=== PATIENT | female | born 1930 | race Caucasian/White ===

== ENCOUNTER 2019-05-06 22:01 | Emergency (ER) | payer OTHER ==
--- NOTE | 2019-05-06 23:59 | ER ---
Nurse's Notes [facility] Name: Tatiana Mccoy Age: 89 yrs Sex: Female : 1930 Arrival Date: 05/06/2019 Time: 22:06 Bed 20 Private MD: Diagnosis: Contusion of other part of head Presentation: 05/06 22:18 Presenting complaint: Patient states: "I was playing [employer] and when I went to 1 get up out of chair, I fell backwards and hit my head on double glass panel; pain to right side of head; denies any pain, N/V. Care prior to arrival: None. Mechanism of Injury: Fall from standing position. Trauma event details: Injury occurred in the [facility], Injury occurred: at home. Injury occurred: May 06, 2019 Injury occurred at: 21:00. 22:18 Acuity: SHELLY 3 lp1 22:18 Method Of Arrival: Ambulatory lp1 22:24 Transition of care: patient was not received from another setting of care. Onset of wh symptoms was May 06, 2019. Risk Assessment: Do you want to hurt yourself or someone else? Patient reports no desire to harm self or others. Initial Sepsis Screen: Does the patient meet any 2 criteria? No. Patient's initial sepsis screen is negative. Does the patient have a suspected source of infection? No. Patient's initial sepsis screen is negative. Historical: - Allergies: 22:23 Macrodantin; lp1 22:23 Plavix; lp1 22:23 Iodine; lp1 22:23 Sulfa (Sulfonamide Antibiotics); lp1 22:23 vasodilators; lp1 22:23 Codeine; lp1 - Home Meds: 22:23 metoprolol succinate 100 mg oral Tb24 1 tab nightly [Active]; clonidine HCl 0.1 mg Oral lp1 tab 0.5 tab nightly [Active]; amlodipine-olmesartan oral 10-20 oral once daily [Active]; omeprazole 20 mg Oral TbEC daily [Active]; Prednisone Oral [Active]; - PMHx: 22:24 Hypertension; GERD; Ulcers; lp1 - PSHx: 22:24 Polyps removed; lp1 - Immunization history:: Adult Immunizations up to date, Adult Immunizations not up to date. - Social history:: Smoking status: Patient/guardian denies using tobacco, Smoking status: Patient/guardian denies using tobacco. - Ebola Screening: : No symptoms or risks identified at this time Patient negative for fever greater than or equal to 101.5 degrees Fahrenheit, and additional compatible Ebola Virus Disease symptoms Patient denies exposure to infectious person. Screenin:21 Abuse screen: Denies threats or abuse. Denies injuries from another. Nutritional wh screening: No deficits noted. Tuberculosis screening: No symptoms or risk factors identified. Fall Risk Fall in past 12 months (25 points). Assessment: 22:23 General: Appears in no apparent distress. Behavior is calm, cooperative, appropriate wh for age. Pain: Denies pain. Neuro: Level of Consciousness is awake, alert, obeys commands, Oriented to person, place, time, situation, Appropriate for age. Cardiovascular: Heart tones S1 S2 Capillary refill < 3 seconds. Respiratory: Airway is patent Respiratory effort is even, unlabored, Respiratory pattern is regular, symmetrical, Breath sounds are clear bilaterally. GI: Abdomen is flat, non-distended. : No signs and/or symptoms were reported regarding the genitourinary system. EENT: No signs and/or symptoms were reported regarding the EENT system. Derm: Skin is intact, is healthy with good turgor, Skin is pink, warm \\T\\ dry. normal. Musculoskeletal: Circulation, motion, and sensation intact. 05/07 00:08 Reassessment: Patient appears in no apparent distress at this time. No changes from previously documented assessment. Patient and/or family updated on plan of care and expected duration. Pain level reassessed. Patient is alert, oriented x 3, equal unlabored respirations, skin warm/dry/pink. Vital Signs: 05/06 22:24 BP 161 / 92; Pulse 78; Resp 18; Temp 98.2(O); Pulse Ox 98% on R/A; Weight 89.81 kg; lp1 Height 5 ft. 5 in. (165.10 cm); Pain 0/10; 05/07 00:08 BP 152 / 90; Pulse 77; Resp 18; Pulse Ox 98% on R/A; wh 05/06 22:24 Body Mass Index 32.95 (89.81 kg, 165.10 cm) lp1 ED Course: 05/06 22:06 Patient arrived in ED. cf2 22:07 Anatoly Bauer is Primary Nurse. 22:08 Dave Damico MD is Attending Physician. tw4 22:17 Radiology exam delayed due to PER NURSE PT NOT READY AT THIS TIME WILL CHECK BACK. nj 22:20 Triage completed. lp1 22:24 Arm band placed on right wrist. 22:25 Patient has correct armband on for positive identification. Bed in low position. Call light in reach. Side rails up X 1. Pulse ox on. NIBP on. 22:[address] via wheelchair. nj 22:50 CT completed. Patient tolerated procedure well. Patient moved back from CT. nj 22:57 CT Head C Spine In Process Unspecified. EDMS 05/07 00:09 No provider procedures requiring assistance completed. Patient did not have IV access during this emergency room visit. Administered Medications: No medications were administered Outcome: 05/06 23:58 Discharge ordered by . tw4 05/07 00:09 Discharged to home ambulatory, with family. Condition: stable Discharge instructions given to patient, family, Instructed on discharge instructions, follow up and referral plans. POC Contussion Demonstrated understanding of instructions, follow-up care, POC 00:10 Patient left the ED. Signatures: Dispatcher [employer] EDMS Piedad Rendon, ANA RN 1 Ifeanyi Benson nv Anatoly Bauer Dave Damico MD MD 4 Anoop Stevesnon 2
--- NOTE | 2019-05-06 23:59 | EDPHYS ---
Physician Documentation [facility] Name: Tatiana Mccoy Age: 89 yrs Sex: Female : 1930 Arrival Date: 05/06/2019 Time: 22:06 Bed 20 Private MD: ED Physician Dave Damico HPI: 05/07 00:09 This 89 yrs old Female presents to ER via Ambulatory with complaints of Fall tw4 Injury, Head. 00:09 Details of fall: The patient fell from an upright position, while standing. Onset: The tw4 symptoms/episode began/occurred just prior to arrival, today. Associated injuries: The patient sustained injury to the head. Severity of symptoms: At their worst the symptoms were mild, in the emergency department the symptoms are unchanged. The patient has not experienced similar symptoms in the past. Historical: - Allergies: 05/06 22:23 Macrodantin; lp1 22:23 Plavix; lp1 22:23 Iodine; lp1 22:23 Sulfa (Sulfonamide Antibiotics); lp1 22:23 vasodilators; lp1 22:23 Codeine; lp1 - Home Meds: 22:23 metoprolol succinate 100 mg oral Tb24 1 tab nightly [Active]; clonidine HCl 0.1 mg Oral lp1 tab 0.5 tab nightly [Active]; amlodipine-olmesartan oral 10-20 oral once daily [Active]; omeprazole 20 mg Oral TbEC daily [Active]; Prednisone Oral [Active]; - PMHx: 22:24 Hypertension; GERD; Ulcers; lp1 - PSHx: 22:24 Polyps removed; lp1 - Immunization history:: Adult Immunizations up to date, Adult Immunizations not up to date. - Social history:: Smoking status: Patient/guardian denies using tobacco, Smoking status: Patient/guardian denies using tobacco. - Ebola Screening: : No symptoms or risks identified at this time Patient negative for fever greater than or equal to 101.5 degrees Fahrenheit, and additional compatible Ebola Virus Disease symptoms Patient denies exposure to infectious person. ROS: 05/07 00:09 Constitutional: Negative for fever, chills, and weight loss, Eyes: Negative for injury, tw4 pain, redness, and discharge, Cardiovascular: Negative for chest pain, palpitations, and edema, Respiratory: Negative for shortness of breath, cough, wheezing, and pleuritic chest pain, Abdomen/GI: Negative for abdominal pain, nausea, vomiting, diarrhea, and constipation, Back: Negative for injury and pain, MS/Extremity: Negative for injury and deformity, Skin: Negative for injury, rash, and discoloration, Neuro: Negative for headache, weakness, numbness, tingling, and seizure. Exam: 00:09 Constitutional: This is a well developed, well nourished patient who is awake, alert, tw4 and in no acute distress. 00:09 Chest/axilla: Normal chest wall appearance and motion. Nontender with no deformity. No lesions are appreciated. Cardiovascular: Regular rate and rhythm with a normal S1 and S2. No gallops, murmurs, or rubs. Normal PMI, no JVD. No pulse deficits. Respiratory: Lungs have equal breath sounds bilaterally, clear to auscultation and percussion. No rales, rhonchi or wheezes noted. No increased work of breathing, no retractions or nasal flaring. Abdomen/GI: Soft, non-tender, with normal bowel sounds. No distension or tympany. No guarding or rebound. No evidence of tenderness throughout. Back: No spinal tenderness. No costovertebral tenderness. Full range of motion. MS/ Extremity: Pulses equal, no cyanosis. Neurovascular intact. Full, normal range of motion. Neuro: Awake and alert, GCS 15, oriented to person, place, time, and situation. Cranial nerves II-XII grossly intact. Motor strength 5/5 in all extremities. Sensory grossly intact. Cerebellar exam normal. Normal gait. 00:09 Head/face: Noted is contusion, that is superficial, of the right side of the back of head. Vital Signs: 05/06 22:24 BP 161 / 92; Pulse 78; Resp 18; Temp 98.2(O); Pulse Ox 98% on R/A; Weight 89.81 kg; lp1 Height 5 ft. 5 in. (165.10 cm); Pain 0/10; 05/07 00:08 BP 152 / 90; Pulse 77; Resp 18; Pulse Ox 98% on R/A; wh 05/06 22:24 Body Mass Index 32.95 (89.81 kg, 165.10 cm) lp1 MDM: 05/06 22:08 Patient medically screened. tw4 05/07 00:09 Differential diagnosis: closed head injury, contusion, fracture, laceration. Data tw4 reviewed: vital signs, nurses notes. Data reviewed: radiologic studies, CT scan. Counseling: I had a detailed discussion with the patient and/or guardian regarding: the historical points, exam findings, and any diagnostic results supporting the discharge/admit diagnosis, radiology results. Special discussion: I discussed with the patient/guardian in detail that at this point there is no indication for admission to the hospital. It is understood, however, that if the symptoms persist or worsen the patient needs to return immediately for re-evaluation. ED course: . ED course: Pt was awake alert and oriented times three upon discharge. 05/06 22:08 Order name: CT Head C Spine tw4 Administered Medications: No medications were administered Disposition: 05/06/19 23:58 Discharged to Home. Impression: Contusion of other part of head. - Condition is Stable. - Discharge Instructions: Contusion, Head Injury, Adult, [id number]. - Medication Reconciliation Form, Thank You Letter, Antibiotic Education, Prescription Opioid Use form. - Follow up: Private Physician; When: Today; Reason: If symptoms return, Recheck today's complaints, Re-evaluation by your physician. - Problem is new. - Symptoms have improved. Signatures: Dispatcher [employer] EDPiedad Alcantara, RN RN lp1 Anatoly Bauer Terrence, MD MD tw4 Corrections: (The following items were deleted from the chart) 00:10 05/06 23:58 05/06/2019 23:58 Discharged to Home. Impression: Contusion of other part of wh head. Condition is Stable. Forms are Medication Reconciliation Form, Thank You Letter, Antibiotic Education, Prescription Opioid Use. Follow up: Private Physician; When: Today; Reason: If symptoms return, Recheck today's complaints, Re-evaluation by your physician. Problem is new. Symptoms have improved. tw4
[2019-05-07 01:09] VITALS: TEMP 98.2; O2SAT 98
[2019-05-07 01:11] VITALS: BP 152/90
--- NOTE | 2019-05-07 10:30 | RAD REPORT ---
EXAM DESCRIPTION: CT - Head C Spine Mpr Wo Con - 05/07/2019 1:22 am CLINICAL HISTORY: FALL COMPARISON: None Available. TECHNIQUE: Multiple helical axial tomographic images were obtained of the head and neck without intr avenous contrast. Coronal and sagittal reformatted images were obtained. This exam was performed acco rding to our departmental dose-optimization program, which includes automated exposure control, adjus tment of the mA and/or kV according to patient size and/or use of iterative reconstruction technique. FINDINGS: Generalized brain volume loss is demonstrated. There is mild hypoattenuation in the perive ntricular white matter suggestive of chronic microvascular ischemic changes. There is no acute intrac ranial hemorrhage. No mass. No midline shift. No ventriculomegaly. Woodruff-white matter differentiation is maintained. Paranasal sinuses are clear. Mastoid air cells and middle ear spaces are clear. Orbits and orbital co ntents are unremarkable. Osseous structures are unremarkable. No evidence for an acute fracture of the cervical spine. There are multilevel degenerative changes of the cervical spine with multilevel disc space narrowing and disc osteophyte complexes. There is mult ilevel facet arthropathy. Multilevel neural foraminal narrowing is demonstrated. Central canal appear s grossly patent. There is pannus formation at the dens. There is mild anterior subluxation of C3 rel ative to C4, C4 relative to C5, and C6 relative to C7 that is likely degenerative related. Carotid atherosclerosis is present. IMPRESSION: 1. No acute intracranial process. 2. No evidence for an acute fracture of the cervical spine. 3. Cervical spine degenerative changes. Electronically signed by: Huseyin Baldwin MD 05/06/2019 11:22 PM CDT Due to temporary technical issues with the PACS/Fluency reporting system, reports are being signed by the in house radiologist as a courtesy to ensure prompt reporting. The interpreting radiologist is f najmaly responsible for the content of the report.
== END 2019-05-07 00:10 | disposition home or self-care (01) ==
LOC: ER 22:01
DX: S00.93XA Contusion of unspecified part of head, initial encounter (principal); W17.89XA Other fall from one level to another, initial encounter; Y93.89 Activity, other specified; Y92.9 Unspecified place or not applicable; Z88.2 Allergy status to sulfonamides; Z91.09 Other allergy status, other than to drugs and biological substances; Z88.6 Allergy status to analgesic agent; Z88.8 Allergy status to other drugs, medicaments and biological substances
CPT/HCPCS: 70450; 72125; 99284